=== PATIENT | male | born 1985 | race Caucasian/White ===

== ENCOUNTER 2018-08-24 11:06 | Emergency (ER) | payer MEDICAID ==
--- NOTE | 2018-08-24 11:15 | Emergency Department Record ---
History of Present Illness - General Stated complaint: RT ANKLE LAC Time Seen by Provider: 08/24/18 11:09 Source: Patient Mode of Arrival: Ambulatory Limitations: No limitations - History of Present Illness Initial comments: 33 yo male presents with an injury to his right lower leg medial side. He was walking and the surgical incision from a recent hardware removal caught on so mething and split open. No other injury. He states he had a prior fracture that had hardware. This was removed just on . He is up to date on tetanus. He states he was in a dog [place] when this occurred and a dog actually licked the wound before he could stop the dog. He states he no longer has a relationship Dr Bojorquez his orthopedic surgeon from [facility] [place]. He is allergic to lidocaine with a severe skin rash. MD Complaint: Extremity pain, Other (Right ankle injury) -: Hour(s) (2) Location: Right Radiation: Distal Quality: Aching Consistency: Constant Improves with: Nothing Worsens with: Other - Related Data Home Medications Medication Instructions Recorded Confirmed Last Taken Clonazepam [Klonopin] 1 mg PO TID 08/24/18 08/24/18 Unknown Clonidine [Catapres-Tts 1] 1 each TD DAILY 08/24/18 08/24/18 Unknown Oxycodone HCl 30 mg PO Q4H 08/24/18 08/24/18 Unknown Quetiapine Fumarate [Seroquel Xr] 150 mg PO QHS 08/24/18 08/24/18 Unknown Quetiapine Fumarate [Seroquel] 50 mg PO QAM 08/24/18 08/24/18 Unknown Tizanidine HCl [Zanaflex] 8 mg PO TID 08/24/18 08/24/18 Unknown Venlafaxine HCl [Effexor Xr] 225 mg PO DAILY 08/24/18 08/24/18 Unknown Allergies Allergy/AdvReac Type Severity Reaction Status Date / Time adhesive tape Allergy RASH Verified 08/24/18 11:29 cephalexin [From Keflex] Allergy SWELLING Verified 08/24/18 12:12 OF THE TONGUE fentanyl Allergy RASH Verified 08/24/18 12:12 hydrocodone Allergy BEHAVIORAL Verified 08/24/18 11:29 CHANGES ketorolac [From Toradol] Allergy RASH Verified 08/24/18 11:29 levofloxacin [From Levaquin] Allergy ANAPHYLAXIS Verified 08/24/18 12:12 morphine Allergy RASH Verified 08/24/18 12:12 Penicillins Allergy ALTERED Verified 08/24/18 12:12 MENTAL STATUS tramadol Allergy BEHAVIORAL Verified 08/24/18 11:29 CHANGES acetaminophen [From Tylenol] AdvReac ordered Verified 08/24/18 11:29 noit to cece from doctor NSAIDS (Non-Steroidal AdvReac ordered Verified 08/24/18 11:29 Anti-Inflamma not to take from doctor. Review of Systems Constitutional: Denies: Chills, Fever, Malaise, Weakness Eyes: Denies: Eye discharge ENT: Denies: Congestion, Throat pain Respiratory: Denies: Cough Cardiovascular: Denies: Chest pain, Syncope Endocrine: Denies: Fatigue Gastrointestinal: Denies: Abdominal pain, Diarrhea, Nausea, Vomiting Genitourinary: Denies: Dysuria, Frequency, Hematuria Musculoskeletal: Reports: Arthralgia Skin: Reports: Other Neurological: Denies: Headache Psychiatric: Denies: Anxiety Hematological/Lymphatic: Denies: Easy bleeding, Easy bruising Physical Exam - General General Appearance: Alert, Oriented x3, Cooperative, No acute distress Limitations: No limitations - Head Head exam: Atraumatic - Eye Eye exam: Normal appearance. negative: Conjunctival injection - ENT ENT exam: Normal exam Ear exam: Normal external inspection Nasal Exam: Normal inspection Mouth exam: Normal external inspection - Cardiovascular Peripheral Pulses: 2+: Dorsalis Pedis (L) - Extremities Image of Feet: 1 - 6cm clean linear open wound - Neurological Neurological exam: Alert, Oriented X3 - Skin Type of lesion: Laceration Course - Reevaluation(s) Reevaluation #1: 08/24/18 11:19 The patient has refused to allow me to call his orthopedist. He has severed that relationship. He states he recalled pain and portions of the surgery. When he mentioned this to Dr Bojorquez a verbal confrontation ensued and they mutually fired each other. This was prior to today's events. Given the high risk nature of the wound I recommend ortho consultation elsewhere if available. 08/24/18 11:29 MGL is on diversion for trauma where he had original surgery I OMAR Casey of [facility] orthopedics He graciously accepts the patient for transfer for OR washout Dr Silva of the ED accepts the patient ED to ED Antibiotics ordered and NPO The wound was copiously irrigated and dressed in the ED Disposition Disposition: Transfer Clinical Impression: Wound dehiscence Disposition: Acute Care Hospital Transfer Transfer To: [facility] ED Reason For Transfer: open surgical wound Accepting Physician: Carmela Silva Time Discussed w/Accepting Physician: 11:54 Condition: (2) Stable Time of Disposition: 11:54 Quality - Quality Measures Quality Measures: N/A - Blood Pressure Screening Does Patient Have Any of the Following: No Blood Pressure Classification: Hypertensive Reading Systolic Measurement: 132 Diastolic Measurement: 100 Screening for High Blood Pressure: < Pre-Hypertensive BP, F/U Documented > [[id number]] Pre-Hypertensive Follow-up Interventions: Referral to alternative/primary care provider.
[2018-08-24] MEDS ORDERED: MORPHINE SULFATE 10 MG/ML VIAL IVP ONE (11:19)
[2018-08-24] MEDS: CEFAZOLIN 1 Gram 1 GM/50 ML BAG IVPB ONE ×2 (11:50→13:01)
[2018-08-24] MEDS ORDERED: HYDROMORPHONE HCL 2 MG/ML VIAL IVP ONE (11:51)
[2018-08-24] MEDS ORDERED: CEFOTETAN DISODIUM IVPB STA (11:56)
[2018-08-24] MEDS ORDERED: SODIUM CHLORIDE 0.9% IVPB STA (11:56)
[2018-08-24] MEDS ORDERED: CEFOTETAN DISODIUM IVPB SCH (12:00)
[2018-08-24] MEDS ORDERED: SODIUM CHLORIDE 0.9% IVPB SCH (12:00)
[2018-08-24] MEDS ORDERED: PROMETHAZINE HCL 25 MG/ML VIAL IVP ONE (12:23)
== END 2018-08-24 12:47 | disposition short-term general hospital (02) ==
LOC: ER 11:06
DX: T81.31XA Disruption of external operation (surgical) wound, not elsewhere classified, initial encounter (principal); W23.1XXA Caught, crushed, jammed, or pinched between stationary objects, initial encounter; Y83.8 Other surgical procedures as the cause of abnormal reaction of the patient, or of later complication, without mention of misadventure at the time of the procedure; Y92.009 Unspecified place in unspecified non-institutional (private) residence as the place of occurrence of the external cause
CPT/HCPCS: 99285 ×2; 96365; 96366; 96375; 96368; J1170; J2550